=== PATIENT | female | born 1950 | race Asian ===

== ENCOUNTER 2022-04-20 18:30 | Emergency (ER) | payer OTHER ==
[~2022-04-20] VITALS: Ht 160 cm; Wt 57.7 kg
[2022-04-20 18:30] VITALS: BP 137/54; TEMP 97.2
[2022-04-20 19:13] LABS: POTASSIUM 4.9 mmol/L (3.6-5.2)
[2022-04-20 19:15] LABS: PLATELET COUNT 236 K/uL (152-353)
[2022-04-20] MEDS ORDERED: DONEPEZIL HYDRO10 MG PO (21:46)
[2022-04-20] MEDS ORDERED: KP FOLIC ACID1 MG PO (21:46)
[2022-04-20] MEDS ORDERED: HALO5INJ3 INJ (21:47)
[2022-04-20] MEDS ORDERED: OMEP40CA PO (21:48)
[2022-04-20] MEDS ORDERED: MEMA5TAB PO (21:48)
[2022-04-20] MEDS ORDERED: FLUOXETINE40 MG PO (21:49)
[2022-04-20] MEDS ORDERED: QUETIAPINE50 MG PO (21:50)
[2022-04-20] MEDS ORDERED: BUSPIRONE5 MG PO (21:51)
[2022-04-20] MEDS ORDERED: CARAFATE1 GM/10 ML PO (21:52)
[2022-04-20] MEDS ORDERED: DICLOFENAC SODIUM1 % TD (21:53)
[2022-04-20] MEDS ORDERED: MAGNESIUM 400 M1 TAB PO (21:55)
[2022-04-20] MEDS ORDERED: ALBUTEROL108 MCG/AC INH (21:55)
== END 2022-04-20 20:48 | disposition still patient (30) ==
LOC: ED 18:30
PROVIDERS: Emergency Medicine Emergency Medical Services
DX: F03.911 Unspecified dementia, unspecified severity, with agitation (principal); Z11.52 Encounter for screening for COVID-19; Z04.6 Encounter for general psychiatric examination, requested by authority
CPT/HCPCS: 36415; 80053; 85027; 87635; 93005; 99283; U0003